=== PATIENT | female | born 2005 | race African-American/Black ===

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

== ENCOUNTER → 2024-01-30 | Outpatient (REF) | payer OTHER, MEDICAID ==
[~2024-01-30] MED LIST changes: +FLUO-365; -FLUO20CA22
[2024-01-31 14:23] LABS: FREE T3 3.4 PG/ML (3.0-4.7); FREE T4 1.06 NG/DL (0.83-1.43); THYROID STIMULATING HORMONE 0.238 uIU/ML (0.48-4.17)
== END ==
LOC: M LAB REF 12:15
PROVIDERS: ATTEND Nurse Practitioner Family
DX: R89.1 Abnormal level of hormones in specimens from other organs, systems and tissues (principal)

== ENCOUNTER → 2024-02-05 | Outpatient (CLI) | payer MEDICAID, OTHER ==
[~2024-02-05] MED LIST changes: -FLUO-365; +FLUO20CA22
== END ==
LOC: M EKG 10:36
PROVIDERS: ATTEND Nurse Practitioner Family
DX: R00.2 Palpitations (principal)

== ENCOUNTER → 2024-03-07 | Outpatient (CLI) | payer OTHER, MEDICAID ==
[~2024-03-07] MED LIST changes: +FLUO-365; -FLUO20CA22
== END ==
LOC: M RAD 15:44
PROVIDERS: ATTEND Nurse Practitioner Family
DX: R89.1 Abnormal level of hormones in specimens from other organs, systems and tissues (principal)

== ENCOUNTER → 2024-06-18 | Outpatient (REF) | payer OTHER, MEDICAID ==
[2024-06-18 19:48] LABS: THYROID STIMULATING HORMONE 1.56 uIU/ML (0.48-4.17)
[2024-06-18 19:51] LABS: FREE T4 1.03 NG/DL (0.83-1.43)
[2024-06-18 21:49] LABS: FREE T3 3.6 PG/ML (3.0-4.7)
== END ==
LOC: M LAB REF 17:13
PROVIDERS: ATTEND Nurse Practitioner Family
DX: R89.1 Abnormal level of hormones in specimens from other organs, systems and tissues (principal)